=== PATIENT | male | born 1970 | race Caucasian/White ===

== ENCOUNTER 2016-11-26 18:53 | Emergency (ER) | payer OTHER ==
[~2016-11-26] VITALS: Ht 172.7 cm; Wt 62.6 kg
[~2016-11-26 18:53] MED LIST: MYFORTIC180 MG PO; NORCO 5-325 TA1 EACH ORAL; TACROLIMUS MC; TYLENOL EXTRA500 MG ORAL
[2016-11-26] MEDS ORDERED: Ketorolac 30mg Inj IM ONE (20:00)
[2016-11-26] MEDS ORDERED: Norco 5mg/325mg tab ORAL ONE (21:00)
[2016-11-26] MEDS ORDERED: CYCLOBENZAPRINE10 MG ORAL (21:05)
[2016-11-26] MEDS ORDERED: IBUPROFEN600 MG ORAL (21:05)
[2016-11-26 21:14] VITALS: BP 124/74
[2016-11-26 21:15] VITALS: BP 124/74
--- NOTE | 2016-11-27 14:23 | Emergency Room Report ---
History of Present Illness General Chief Complaint: Neck Pain Source: Patient Present Illness HPI 46-year-old male presents to ED for evaluation of neck pain. States that at work yesterday a box fell off the shelf and he quickly moved his head to avoid a box. States in the process he strained his neck. Notes stiffness on the left side of the neck. Pain is a 8/10, sharp, nonradiating. Denies fevers or chills. Denies headache. Patient took Tylenol without significant relief. No other aggravating relieving factors. Denies any other associated symptoms Allergies: Coded Allergies: No Known Allergies (Unverified , 07/07/16) Patient History Past Medical History: none Past Surgical History: other - kidney transplant Pertinent Family History: none Social History: Denies: alcohol use, drug use, smoking Immunizations: UTD Reviewed Nursing Documentation: PMH: Agreed, PSxH: Agreed Nursing Documentation-PMH Hx Cardiac Problems: No - KIDNEY TRANSPLANT 10 YEARS Hx Dialysis: Yes - kidney transplant Review of Systems All Other Systems: negative except mentioned in HPI Physical Exam Vital Signs Date Time Temp Pulse Resp B/P Pulse Ox O2 Delivery O2 Flow Rate FiO2 11/26/16 19:21 98.1 95 18 116/79 96 Room Air Sp02 EP Interpretation: reviewed, normal General Appearance: no apparent distress, alert, GCS 15, non-toxic Head: normocephalic Eyes: bilateral eye PERRL, bilateral eye normal inspection ENT: hearing grossly normal, normal pharynx, no angioedema, normal voice Neck: no bony tend, limited range of motion, tender lateral Respiratory: chest non-tender, lungs clear, normal breath sounds, speaking full sentences Cardiovascular #1: regular rate, rhythm, no edema Gastrointestinal: normal inspection Rectal: deferred Genitourinary: no CVA tenderness Musculoskeletal: normal inspection Neurologic: alert, oriented x3, responsive, motor strength/tone normal, sensory intact, speech normal Psychiatric: normal inspection Skin: normal inspection Lymphatic: normal inspection Medical Decision Making Diagnostic Impression: Primary Impression: Neck strain Qualified Codes: S16.1XXA - Strain of muscle, fascia and tendon at neck level , initial encounter ER Course Hospital Course 46-year-old male presents ED complaining of left-sided neck pain and stiffness after quickly turning head Differential diagnoses include: neck strain, shoulder strain, dislocation/ fracture Clinical course Patient placed on stretcher. After initial history and physical exam reveals middle-aged male in no acute distress. On exam there is no midline neck tenderness or shoulder tenderness. Full range of motion to the shoulder. There is pain over the left SCM. Consistent with a neck strain Patient given pain medication. Upon reassessment pain is improved, stiffness slowly resolving Diagnosis - neck strain Stable and discharged to home with prescription for Flexeril, patient had Tylenol at home. Heating pad. Followup with PMD. Return to ED if symptoms recur or worsen Last Vital Signs Date Time Temp Pulse Resp B/P Pulse Ox O2 Delivery O2 Flow Rate FiO2 11/26/16 21:15 98.0 69 18 124/74 98 Room Air Status: improved Disposition: HOME, SELF-CARE Condition: Stable Scripts Cyclobenzaprine Hcl* (FLEXERIL*) 10 Mg Tablet 10 MG ORAL TID Y for Muscle Spasm, #20 TAB Prov: WILDA RODRIGUEZ M.D. 11/26/16 Referrals: NON PHYSICIAN (PCP) Departure Forms: Return to Work Return to Work Date: November 27, 2016 Work Restrictions: No Heavy Lifting Patient Instructions: Cervical Strain and Sprain With [facility] WILDA RODRIGUEZ M.D. November 27, 2016 14:22
== END 2016-11-26 21:15 | disposition home or self-care (01) ==
LOC: EMR 19:49
DX: S16.1XXA Strain of muscle, fascia and tendon at neck level, initial encounter (principal); X58.XXXA Exposure to other specified factors, initial encounter; Y93.9 Activity, unspecified; Y99.9 Unspecified external cause status; Z94.0 Kidney transplant status
CPT/HCPCS: 96372; 99282; 99284

== ENCOUNTER 2017-02-07 12:52 | Emergency (ER) | payer OTHER ==
[~2017-02-07] VITALS: Ht 172.7 cm; Wt 59.0 kg
[~2017-02-07 12:52] MED LIST changes: +CYCLOBENZAPRINE10 MG ORAL; +IBUPROFEN600 MG ORAL
[2017-02-07] MEDS ORDERED: MYFORTIC180 MG PO (13:01)
[2017-02-07 13:09] VITALS: BP 138/66
[2017-02-07] MEDS ORDERED: Norco 5mg/325mg tab ORAL ONE (13:15)
[2017-02-07] MEDS ORDERED: Lidocaine 1% 10mg/ml/Epi 0.005mg/ml 30ml vial INJ ONE (14:07)
[2017-02-07] MEDS ORDERED: Lidocaine 1% 10mg/ml/EPI 0.01mg/ml 50ml INJ ONE (14:30)
[2017-02-07] MEDS ORDERED: NORCO 5-325 TA1 EACH ORAL (14:49)
[2017-02-07 15:41] VITALS: BP 138/66
--- NOTE | 2017-02-07 18:19 | Emergency Room Report ---
History of Present Illness General Chief Complaint: Laceration Source: Patient Present Illness HPI 46-year-old male presents ED complaining of laceration to forehead. Patient states that he was running and tripped and fell forward hitting his head. Denies LOC. Patient notes laceration to his forehead and scalp. Tetanus is up- to-date. Denies any other injuries. Denies nausea or vomiting. No other aggravating relieving factors. Denies any other associated symptoms Allergies: Coded Allergies: No Known Allergies (Unverified , 07/07/16) Patient History Past Medical History: none Past Surgical History: other - kidney transplant Pertinent Family History: none Social History: Denies: alcohol use, drug use, smoking Immunizations: UTD Reviewed Nursing Documentation: PMH: Agreed, PSxH: Agreed Nursing Documentation-PMH Hx Cardiac Problems: No - KIDNEY TRANSPLANT APPROX 12 YRS AGO. Hx Dialysis: Yes - kidney transplant Review of Systems All Other Systems: negative except mentioned in HPI Physical Exam Vital Signs Date Time Temp Pulse Resp B/P Pulse Ox O2 Delivery O2 Flow Rate FiO2 02/07/17 12:54 98.1 128 19 97 Room Air 02/07/17 13:09 138/66 Sp02 EP Interpretation: reviewed, normal General Appearance: no apparent distress, alert, GCS 15, non-toxic Head: normocephalic, other - 8cm laceration to forehead/scalp Eyes: bilateral eye PERRL, bilateral eye normal inspection ENT: hearing grossly normal, normal pharynx, no angioedema, normal voice Neck: normal inspection Respiratory: normal inspection Cardiovascular #1: normal inspection Gastrointestinal: normal inspection Rectal: deferred Genitourinary: no CVA tenderness Musculoskeletal: normal inspection Neurologic: alert, oriented x3, responsive, motor strength/tone normal, sensory intact, speech normal Psychiatric: judgement/insight normal, memory normal, mood/affect normal, no suicidal/homicidal ideation Skin: laceration - 8cm laceration to scalp Lymphatic: normal inspection Procedures Laceration/Wound Repair Laceration/Wound Repair : Consent: Verbal Wound Location: head Wound's Depth, Shape: linear Wound Explored: clean Betadine Prep?: Yes Anesthesia: Lidocaine w/ Epi Wound Debrided: minimal Wound Repaired With: sutures, yuly - 5 Suture Size/Type: 6:0, proline Number of Sutures: 9 Layer Closure?: Yes Deep Layer Suture Size/Type: 4:0, other - vicryl Number Deep Layer Sutures: 2 Sterile Dressing Applied?: Yes Splint Applied?: No Sling Applied?: No Patient Tolerated: Well Complications: None Medical Decision Making Diagnostic Impression: Primary Impression: Head injury Qualified Codes: S09.90XA - Unspecified injury of head, initial encounter Additional Impression: Laceration ER Course Hospital Course 46-year-old male presents ED with laceration to scalp and forehead status post trip and fall. No LOC Clinical course Patient placed on stretcher. After initial history and physical, wound is irrigated. Anesthesia provided with lidocaine. given head injury I offered patient option for CT head patient declined Laceration repaired w/o complication. Dressing applied. Diagnosis - laceration, head injury Stable and discharged to home with prescription for [place]. wound Care instructions given. Followup with PMD in 7-10 days for suture/staple removal. Return to ED if any signs of infection develop Last Vital Signs Date Time Temp Pulse Resp B/P Pulse Ox O2 Delivery O2 Flow Rate FiO2 02/07/17 15:41 98.1 128 19 138/66 97 Room Air Status: improved Disposition: HOME, SELF-CARE Condition: Stable Scripts Hydrocodone Bit/Acetaminophen 5-325* (NORCO 5-325*) 1 Each Tablet 1 TAB ORAL Q6H Y for For Pain, #10 TAB 0 Refills Prov: WILDA RODRIGUEZ M.D. 02/07/17 Patient Instructions: Laceration Care, Adult Additional Instructions: have sutures removed in 7 days. return to ED if any signs of infection develop WILDA RODRIGUEZ M.D. Feb 07, 2017 18:19
== END 2017-02-07 15:41 | disposition home or self-care (01) ==
LOC: EMR 13:11
DX: S09.90XA Unspecified injury of head, initial encounter (principal); S01.81XA Laceration without foreign body of other part of head, initial encounter; W01.10XA Fall on same level from slipping, tripping and stumbling with subsequent striking against unspecified object, initial encounter; Y93.9 Activity, unspecified; Y92.9 Unspecified place or not applicable; Z94.0 Kidney transplant status

== ENCOUNTER 2017-10-18 20:59 | Emergency (ER) | payer OTHER ==
[~2017-10-18] VITALS: Ht 170.2 cm; Wt 59.0 kg
[2017-10-18 21:02] VITALS: BP 164/103
[2017-10-18] MEDS ORDERED: KEPPRA500 M4 ORAL (21:13)
[2017-10-18] MEDS ORDERED: XANAX2 MG ORAL (21:13)
--- NOTE | 2017-10-18 21:14 | Emergency Room Report ---
History of Present Illness General Chief Complaint: Seizure Source: Patient Present Illness HPI This is a 46-year-old male with a history of kidney transplant. He also has a history of seizure. He said his seizure usually occurred when he is sleep deprived. He has 3 episodes in the last year. He's had EEG was normal but it was not a sleep deprived EEG. He presents with chief complaint of a seizure. He said that he's been out of his Xanax for the last 2 days. He also hasn't been sleeping much. He is scheduled for refill in 2 days. He had a tonic- clonic seizure activity lasting for a few minutes that was witnessed at work. No trauma. No incontinence of bowel or urine. No oral trauma. Witnessed by coworkers. He was postictal per EMS but now back to baseline. Allergies: Coded Allergies: No Known Allergies (Unverified , 07/07/16) Patient History Past Medical History: see triage record, old chart reviewed, seizures Past Surgical History: other Pertinent Family History: none Social History: Denies: smoking Immunizations: other Reviewed Nursing Documentation: PMH: Agreed; PSxH: Agreed Nursing Documentation-PMH Past Medical History: No History, Except For Hx Dialysis: Yes - kidney transplant Hx Seizures: Yes Review of Systems Eye: Denies: eye pain, blurred vision ENT: Denies: ear pain, nose congestion, throat swelling Respiratory: Denies: cough, shortness of breath Cardiovascular: Denies: chest pain, palpitations Gastrointestinal: Denies: abdominal pain, diarrhea, nausea, vomiting Musculoskeletal: Denies: back pain, joint pain Skin: Denies: rash Neurological: Reports: headache; Denies: numbness Endocrine: Denies: increased thirst, increased urine Hematologic/Lymphatic: Denies: easy bruising All Other Systems: negative except mentioned in HPI Physical Exam Vital Signs Date Time Temp Pulse Resp B/P (MAP) Pulse Ox O2 Delivery O2 Flow Rate FiO2 10/18/17 20:55 99.3 120 18 164/103 97 Room Air 99.3 vitals with tachycardia and high blood pressure Sp02 EP Interpretation: reviewed, normal General Appearance: well appearing, no apparent distress, alert Head: normocephalic, atraumatic Eyes: bilateral eye PERRL, bilateral eye EOMI ENT: hearing grossly normal, normal pharynx Neck: full range of motion, supple, no meningismus Respiratory: chest non-tender, lungs clear, normal breath sounds Cardiovascular #1: regular rate, rhythm, no murmur Gastrointestinal: normal bowel sounds, non tender, no mass, no organomegaly, no bruit, non-distended Musculoskeletal: back normal, gait/station normal, normal range of motion Psychiatric: mood/affect normal Skin: warm/dry Medical Decision Making Diagnostic Impression: Primary Impression: Seizure disorder ER Course Patient with seizure. This probably secondary to sleep deprivation. He is currently taking gabapentin for it. I loaded him with Keppra here. I see no need for CT scan or blood work since this been worked up already. I explained to the patient that I have to place him on driving restriction because of his seizure. He need to be cleared by a neurologist. Also recommend sleep deprived EEG to confirm seizure activity. Last Vital Signs Date Time Temp Pulse Resp B/P (MAP) Pulse Ox O2 Delivery O2 Flow Rate FiO2 10/18/17 20:55 99.3 120 18 164/103 97 Room Air 99.3 Status: improved Disposition: HOME, SELF-CARE Condition: Stable Scripts Alprazolam* (XANAX*) 2 Mg Tablet 2 MG ORAL BID, #5 TAB 0 Refills Prov: JENNY PAREKH M.D. 10/18/17 Levetiracetam (KEPPRA) 500 Mg Tablet 500 MG ORAL EVERY 12 HOURS, #60 TAB 0 Refills Prov: JENNY PAREKH M.D. 10/18/17 Patient Instructions: Seizure, Adult Additional Instructions: Because of your seizure activity, you cannot drive. A DMV form was filed by us. You will need clearance from your neurologist. Recommend sleep deprived EEG to confirm seizure activity. Follow-up with your doctor within 7 days. Return if symptom worsen. JENNY PAREKH M.D. Oct 18, 2017 21:14
[2017-10-18] MEDS ORDERED: levETIRAcetam 1,000mg/NS100ml 100 ML IVPB ONE (21:15)
[2017-10-18 22:10] VITALS: BP 147/74
== END 2017-10-18 22:10 | disposition home or self-care (01) ==
LOC: EDBD 20:59 → EMR 22:00
DX: G40.909 Epilepsy, unspecified, not intractable, without status epilepticus (principal); Z94.0 Kidney transplant status; R51 Headache
CPT/HCPCS: 96374; 99284; J1953